=== PATIENT | female | born 1980 | race Caucasian/White ===

== ENCOUNTER 2017-04-14 18:37 | Emergency (ER) | payer MEDICAID ==
[2017-04-14] MEDS ORDERED: Ketorolac 60 MG/2 ML SDV IM ONE (18:46)
[2017-04-14 18:49] VITALS: BP 135/79
--- NOTE | 2017-04-14 18:55 | EDM.PDOC ---
ED HPI GENERAL MEDICAL PROBLEM - General Chief Complaint: Lower Extremity Injury/Pain Stated Complaint: left knee pain Time Seen by Provider: 04/14/17 18:40 Source of Information: Reports: Patient History Limitations: Reports: No Limitations - History of Present Illness INITIAL COMMENTS - FREE TEXT/NARRATIVE: Pt was bending down to get something and lost her balance and landed on her left knee causing severe pain. Pt states it felt like bone on bone rubbing together. She has a long standing history on left knee problems and has a pocket of fluid that has been present the the lower medial aspect of the patella. Pt does not believe the fluid level is any different than prior to the injury. It hurts to walk on the extremity or straighten her leg out. Onset: Today, Sudden Onset Time: 12:00 Duration: Getting Worse Location: Reports: Lower Extremity, Left Quality: Reports: Stabbing, Throbbing Severity: Moderate Improves with: Reports: None Worsens with: Reports: Movement Left Knee Pain Score (Numeric/FACES): 7 - Related Data Allergies Allergy/AdvReac Type Severity Reaction Status Date / Time No Known Drug Allergies Allergy Other Verified 04/14/17 18:50 Home Meds: Home Meds . [No Known Home Meds] 04/14/17 [History] Past Medical History Other Psychiatric History: cutting disorder Social & Family History - Tobacco Use Smoking Status *Q: Current Every Day Smoker Years of Tobacco use: 18 - Alcohol Use Days Per Week of Alcohol Use: 0 - Recreational Drug Use Recreational Drug Use: Yes Drug Use in Last 12 Months: Yes Recreational Drug Type: Reports: Marijuana/Hashish Review of Systems - Review of Systems Review Of Systems: See Below Constitutional: Reports: No Symptoms Respiratory: Reports: No Symptoms Cardiovascular: Reports: No Symptoms GI/Abdominal: Reports: No Symptoms Musculoskeletal: Reports: Leg Pain. Denies: Back Pain, Muscle Pain, Muscle Stiffness Skin: Reports: No Symptoms Neurological: Reports: No Symptoms ED EXAM, GENERAL - Physical Exam Exam: See Below Exam Limited By: No Limitations General Appearance: Alert, WD/WN, No Apparent Distress Head: Atraumatic, Normocephalic Neck: Normal Inspection, Supple, Full Range of Motion Respiratory/Chest: No Respiratory Distress, No Accessory Muscle Use Cardiovascular: Normal Peripheral Pulses Back Exam: Normal Inspection, Full Range of Motion Extremities: Leg Pain, Limited Range of Motion. No: Increased Warmth, Mottled Course - Vital Signs Last Recorded V/S: Last Vital Signs Temp 35.3 C 04/14/17 18:40 Pulse 98 04/14/17 18:40 Resp 18 04/14/17 18:40 BP 135/79 04/14/17 18:40 Pulse Ox 100 04/14/17 18:40 - Orders/Labs/Meds Orders: Active Orders 24 hr Category Date Time Status Splinting [RC] ASDIRECTED Care 04/14/17 20:09 Ordered Knee 3V Lt [CR] Stat Exams 04/14/17 18:44 Taken Meds: Medications Discontinued Medications Generic Name Dose Route Start Last Admin Trade Name Paul PRN Reason Stop Dose Admin Ketorolac Tromethamine 60 mg 04/14/17 18:46 04/14/17 18:53 Toradol IM 04/14/17 18:47 60 mg ONETIME ONE Administration Departure - Departure Time of Disposition: 20:15 Disposition: Home, Self-Care 01 Condition: Good Clinical Impression: Knee pain, acute Qualifiers: Laterality: left Qualified Code(s): M25.562 - Pain in left knee - Discharge Information Instructions: Knee Pain Referrals: Janee Slater ACCESSIONER [Primary Care Provider] - Forms: ED Department Discharge Additional Instructions: Knee brace provided for comfort. Rest, ICE and elevated Use OTC pain management medications as needed for pain Follow up with PCP in 2 weeks if not better for further evaluation and possible MRI Keep off extremity for the next 24 hours and then progress with weight bearing activities Pt is advised to report to the ER or contact her PCP with any concerns including signs of infections or pain worsening. - My Orders Last 24 Hours: My Active Orders 04/14/17 18:44 Knee 3V Lt [CR] Stat 04/14/17 20:09 Splinting [RC] ASDIRECTED - Assessment/Plan Last 24 Hours: My Active Orders 04/14/17 18:44 Knee 3V Lt [CR] Stat 04/14/17 20:09 Splinting [RC] ASDIRECTED
== END 2017-04-14 20:20 | disposition home or self-care (01) ==
LOC: VM.ED 18:37
DX: M25.562 Pain in left knee (principal); F17.200 Nicotine dependence, unspecified, uncomplicated
CPT/HCPCS: 73562; 96372; 99283; J1885

== ENCOUNTER 2017-10-20 20:42 | Emergency (ER) | payer MEDICAID | END 2017-10-20 21:45 | disposition home or self-care (01) | LOC: VM.ED 20:42 | DX: Z53.21 Procedure and treatment not carried out due to patient leaving prior to being seen by health care provider (principal) ==

== ENCOUNTER 2017-10-21 08:55 | Emergency (ER) | payer MEDICAID ==
[2017-10-21 09:13] VITALS: BP 128/82
[2017-10-21] MEDS ORDERED: Ketorolac 60 MG/2 ML SDV IM ONE (09:16)
[2017-10-21 09:55] LABS: CHLORIDE,CL 105 mmol/L (98-107); SODIUM,NA 139 mmol/L (136-145)
[2017-10-21] MEDS ORDERED: Take Home: Doxycycline 100 MG Tab, 4 Tab Pack PO ONE (10:02)
[2017-10-21] MEDS ORDERED: Take Home: Acetaminophen/Codeine 300 MG/30 MG, 5 Tab Pack PO ONE (10:03)
[2017-10-21] MEDS ORDERED: predniSONE 20 MG Tab PO ONE (10:20)
--- NOTE | 2017-10-21 11:36 | EDM.PDOC ---
ED HPI GENERAL MEDICAL PROBLEM - General Chief Complaint: Upper Extremity Injury/Pain Stated Complaint: er Time Seen by Provider: 10/21/17 08:59 Source of Information: Reports: Patient ([id number]) History Limitations: Reports: No Limitations - History of Present Illness INITIAL COMMENTS - FREE TEXT/NARRATIVE: Pt. presents to ER with complaints of L sided chest and back pain. Pt. states that she has been experiencing this for several days and states that she has had a non-productive cough for approx. 1 month. She is a smoker. Denies fever or chills. She characterizes the discomfort as sharp. It is respirophasic and worse with movement and palpation. She states that she saw a chiropractor who told her she had a "rib out". An adjustment was performed but it did not help. Onset Date: 10/18/17 Duration: Constant Location: Reports: Chest Quality: Reports: Sharp Improves with: Reports: Rest Worsens with: Reports: Movement Right Shoulder Pain Score (Numeric/FACES): 9 - Related Data Allergies Allergy/AdvReac Type Severity Reaction Status Date / Time morphine Allergy Itching Verified 10/21/17 09:16 Home Meds: Home Meds Baclofen 10 mg PO TID PRN 10/21/17 [History] Levothyroxine Sodium [Synthroid] 75 mcg PO DAILY 10/21/17 [History] Omeprazole 40 mg PO DAILY 10/21/17 [History] Phentermine HCl 37.5 mg PO DAILY 10/21/17 [History] Past Medical History Musculoskeletal History: Reports: Back Pain, Chronic, Other (See Below) Other Musculoskeletal History: knee pain Other Psychiatric History: cutting disorder Endocrine/Metabolic History: Reports: Hypothyroidism Social & Family History - Tobacco Use Smoking Status *Q: Current Every Day Smoker Years of Tobacco use: 22 Packs/Tins Daily: 1 - Alcohol Use Days Per Week of Alcohol Use: 0 - Recreational Drug Use Recreational Drug Use: Yes Drug Use in Last 12 Months: Yes Recreational Drug Type: Reports: Marijuana/Hashish Review of Systems - Review of Systems Review Of Systems: See Below Constitutional: Reports: No Symptoms Eyes: Reports: No Symptoms Ears: Reports: No Symptoms Nose: Reports: No Symptoms Mouth/Throat: Reports: No Symptoms Respiratory: Reports: Pleuritic Chest Pain Cardiovascular: Reports: Edema GI/Abdominal: Reports: No Symptoms Genitourinary: Reports: No Symptoms Musculoskeletal: Reports: No Symptoms Skin: Reports: No Symptoms Neurological: Reports: No Symptoms Psychiatric: Reports: No Symptoms ED EXAM, GENERAL - Physical Exam Exam: See Below Exam Limited By: No Limitations General Appearance: Alert, WD/WN, No Apparent Distress Eye Exam: Bilateral Eye: EOMI, Normal Fundi, Normal Inspection, PERRL Ears: Normal External Exam, Normal Canal, Hearing Grossly Normal, Normal TMs Throat/Mouth: Normal Inspection, Normal Lips, Normal Teeth, Normal Gums, Normal Oropharynx, Normal Voice, No Airway Compromise Head: Atraumatic, Normocephalic Neck: Normal Inspection, Supple, Non-Tender, Full Range of Motion Respiratory/Chest: No Respiratory Distress, Lungs Clear, No Accessory Muscle Use , Decreased Breath Sounds, Pleural Rub (Left sided pleural rub) Cardiovascular: Normal Peripheral Pulses, Regular Rate, Rhythm, No Edema, No Gallop, No JVD, No Murmur, No Rub Extremities: Normal Inspection, Normal Range of Motion, Non-Tender, Normal Capillary Refill, No Pedal Edema Neurological: Alert, Oriented, CN II-XII Intact, Normal Cognition, Normal Gait, Normal Reflexes, No Motor/Sensory Deficits Skin Exam: Warm, Dry, Intact, Normal Color, No Rash Course - Vital Signs Last Recorded V/S: Last Vital Signs Temp 36.8 C 10/21/17 09:00 Pulse 91 10/21/17 09:00 Resp 18 10/21/17 09:00 BP 128/82 10/21/17 09:00 Pulse Ox 95 10/21/17 09:00 - Orders/Labs/Meds Orders: Active Orders 24 hr Category Date Time Status Chest 2V [CR] Stat Exams 10/21/17 09:13 Taken Labs: Laboratory Tests 10/21/17 10/21/17 10/21/17 Range/Units 09:27 09:27 09:27 WBC 8.8 (4.0-10.0) x10^3/uL RBC 4.84 (4.00-5.50) x10^6/uL Hgb 14.3 (12.0-16.0) g/dL Hct 42.2 (33.0-47.0) % MCV 87.2 (78.0-93.0) fL MCH 29.5 (26.0-32.0) pg MCHC 33.9 (32.0-36.0) g/dL RDW Coeff of Pascual 13.8 (10.0-15.0) % Plt Count 293 (130-400) x10^3/uL Neut % (Auto) 65.8 (50.0-80.0) % Lymph % (Auto) 22.2 L (25.0-50.0) % [place] % (Auto) 9.3 (2.0-11.0) % Eos % (Auto) 2.5 (0.0-4.0) % Baso % (Auto) 0.2 (0.2-1.2) % PT 9.8 (9.8-11.8) SEC INR 0.9 L (2.0-3.5) D-Dimer, Quantitative 0.56 (<=0.58) mg/LFEU Sodium 139 (136-145) mmol/L Potassium 3.9 (3.5-5.1) mmol/L Chloride 105 (98-107) mmol/L Carbon Dioxide 25 (21-32) mmol/L BUN 13 (7-18) mg/dL Creatinine 0.7 (0.55-1.02) mg/dL Est Cr Clr Drug Dosing TNP Estimated GFR (MDRD) > 60 Glucose 93 (74-106) mg/dL Calcium 9.0 (8.5-10.1) mg/dL Corrected Calcium 9.16 (8.5-10.1) mg/dL Total Bilirubin 0.5 (0.2-1.0) mg/dL AST 16 (15-37) U/L ALT 23 (14-59) U/L Alkaline Phosphatase 73 (46-116) U/L C-Reactive Protein 1.2 H (<=0.9) mg/dL Total Protein 7.3 (6.4-8.2) g/dL Albumin 3.8 (3.4-5.0) g/dL Globulin 3.5 Albumin/Globulin Ratio 1.09 Meds: Medications Discontinued Medications Generic Name Dose Route Start Last Admin Trade Name Freq PRN Reason Stop Dose Admin Acetaminophen/Codeine Phosphate 1 packet 10/21/17 10:03 10/21/17 10:25 Take Home: Acetam/Codeine 300-30 Mg, 5 Pack PO 10/21/17 10:04 Not Given ONETIME ONE Doxycycline Monohydrate 1 packet 10/21/17 10:02 10/21/17 10:17 Take Home: Doxycycline 100 Mg, 4 Tab Pack PO 10/21/17 10:03 1 packet ONETIME ONE Administration Ketorolac Tromethamine 60 mg 10/21/17 09:16 10/21/17 09:40 Toradol IM 10/21/17 09:17 60 mg ONETIME ONE Administration Prednisone 40 mg 10/21/17 10:20 10/21/17 10:24 Prednisone PO 10/21/17 10:21 40 mg ONETIME ONE Administration Departure - Departure Time of Disposition: 10:27 Disposition: Home, Self-Care 01 Condition: Good Clinical Impression: Pleurisy - Discharge Information Instructions: Acute Bronchitis, Adult, [id number], Pleurisy, [id number] Referrals: Jacy Murphy, [employer]PER [Primary Care Provider] - Forms: ED Department Discharge Additional Instructions: Doxycycline 100mg-1 tablet twice daily for 10 days Prednisone 40mg-1 tablet daily for 5 days Ibuprofen 600mg every 6 hours for pain. If this doesn't help, take Tylenol #3-1 tablet every 6 hours for pain Follow-up in clinic for recheck in 7-10 days - My Orders Last 24 Hours: My Active Orders 10/21/17 09:13 Chest 2V [CR] Stat - Assessment/Plan Last 24 Hours: My Active Orders 10/21/17 09:13 Chest 2V [CR] Stat
== END 2017-10-21 10:27 | disposition home or self-care (01) ==
LOC: VM.ED 08:55
DX: R09.1 Pleurisy (principal); F17.210 Nicotine dependence, cigarettes, uncomplicated; E03.9 Hypothyroidism, unspecified; Z79.899 Other long term (current) drug therapy; Z88.5 Allergy status to narcotic agent
CPT/HCPCS: 36415; 71046; 80053; 85025; 85379; 85610; 86140; 96372; 99283; A9270; J1885